=== PATIENT | female | born 1985 | race Caucasian/White ===

== ENCOUNTER 2016-07-15 16:15 | Outpatient (CLI) | payer MEDICAID | END 2016-07-15 16:16 | disposition home or self-care (01) | DX: R30.0 Dysuria (principal); N76.0 Acute vaginitis ==

== ENCOUNTER 2017-10-19 14:42 | Outpatient (CLI) | payer MEDICAID ==
--- NOTE | 2017-10-19 15:28 | XRAY Report ---
Procedure Date: 10/19/2017 Accession Number: [id number] / [id number] Procedure: XRS - Finger(s) RT CPT Code: FULL RESULT: EXAM: Finger(s) RT First digit radiography CLINICAL HISTORY: THUMB PAIN, RIGHT COMPARISON: None. TECHNIQUE: 3 views. FINDINGS: There is no fracture or dislocation. There is no foreign body in the soft tissues. IMPRESSION: No fracture or dislocation. RADIA
== END 2017-10-19 14:43 | disposition home or self-care (01) ==
LOC: DI.S 14:42
PROVIDERS: ATTEND Nurse Practitioner Family
DX: M79.644 Pain in right finger(s) (principal)
CPT/HCPCS: 73140

== ENCOUNTER 2017-12-11 15:41 | Outpatient (CLI) | payer MEDICAID | END 2017-12-11 15:42 | disposition home or self-care (01) | LOC: LAB.R 15:41 | PROVIDERS: ATTEND Nurse Practitioner | DX: R19.7 Diarrhea, unspecified (principal) | CPT/HCPCS: 81599; 82274; 83630; 87045; 87046; 87177; 87209; 87493 ==

== ENCOUNTER 2019-01-17 08:40 | Outpatient (CLI) | payer MEDICAID | END 2019-01-17 23:59 | disposition home or self-care (01) | LOC: LAB.R 08:40 | PROVIDERS: ATTEND Physician Assistant Medical | DX: N39.0 Urinary tract infection, site not specified (principal) | CPT/HCPCS: 87086; 87181 ==

== ENCOUNTER 2020-01-18 07:00 | Outpatient (CLI) | payer MEDICAID | END 2020-01-18 23:59 | disposition home or self-care (01) | LOC: LAB.R 07:00 | PROVIDERS: ATTEND Internal Medicine | DX: R06.02 Shortness of breath (principal); R05 Cough; R50.9 Fever, unspecified; Z20.828 Contact with and (suspected) exposure to other viral communicable diseases ==

== ENCOUNTER 2021-02-01 08:00 | Outpatient (CLI) | payer MEDICAID ==
--- NOTE | 2021-02-01 16:20 | XRAY Report ---
PROCEDURE: Hand 3 View RT INDICATIONS: CONTUSION OF RIGHT HAND TECHNIQUE: 3 views of the hand(s) acquired. COMPARISON: 03/03/2019. FINDINGS: Bones: No acute fractures or dislocations. There is a mild curvature of the fifth metacarpal consist ent with sequelae of an old fracture redemonstrated. No suspicious bony lesions. Soft tissues: No suspicious soft tissue calcifications. IMPRESSION: 1. No acute fracture or dislocation. Reviewed by: Hugh Dinh MD on 02/01/2021 4:19 PM PST Approved by: Hugh Dinh MD on 02/01/2021 4:19 PM PST Station ID: [id number]
== END 2021-02-01 23:59 | disposition home or self-care (01) ==
LOC: DI.S 08:00
PROVIDERS: ATTEND Physician Assistant
DX: S60.221A Contusion of right hand, initial encounter (principal)

== ENCOUNTER 2021-02-01 12:46 | Emergency (ER) | payer MEDICAID ==
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
[2021-02-01] MEDS ORDERED: IOVERSOL 320 100 ML VIAL IVP ONE (13:41)
[2021-02-01 13:43] VITALS: BP 128/66
== END 2021-02-01 13:42 | disposition home or self-care (01) ==
LOC: ED 12:46
DX: T71.193A Asphyxiation due to mechanical threat to breathing due to other causes, assault, initial encounter (principal); S60.211A Contusion of right wrist, initial encounter
CPT/HCPCS: 80053; 83690; 84702; 85025; 99282; 99284

== ENCOUNTER 2021-07-05 08:00 | Outpatient (CLI) | payer MEDICAID ==
--- NOTE | 2021-07-05 11:16 | XRAY Report ---
PROCEDURE: Ribs 2 View LT INDICATIONS: CHEST INJURY TECHNIQUE: 3 views of the left ribs were acquired. COMPARISON: None. FINDINGS: BONES: No acute, displaced fracture or dislocation. SOFT TISSUES: No focal abnormality. IMPRESSION: 1.No acute, displaced left rib fracture. Reviewed by: Erich Rainey MD on 07/05/2021 11:15 AM PDT Approved by: Erich Rainey MD on 07/05/2021 11:15 AM PDT Station ID: [id number]
--- NOTE | 2021-07-05 11:16 | XRAY Report ---
PROCEDURE: Chest 2 View X-Ray INDICATIONS: CHEST INJURY TECHNIQUE: 2 view(s) of the chest. COMPARISON: None. FINDINGS: SUPPORT DEVICES: None. LUNGS/PLEURA: No focal consolidation, pleural effusion or space-occupying pneumothorax. MEDIASTINUM: The cardiomediastinal silhouette is within normal limits. BONES/SOFT TISSUES: No acute abnormality. IMPRESSION: 1.No acute cardiopulmonary abnormality. Reviewed by: Erich Rainey MD on 07/05/2021 11:14 AM PDT Approved by: Erich Rainey MD on 07/05/2021 11:14 AM PDT Station ID: [id number]
== END 2021-07-05 23:59 | disposition home or self-care (01) ==
LOC: DI.S 08:00
PROVIDERS: ATTEND Emergency Medicine
DX: S20.212A Contusion of left front wall of thorax, initial encounter (principal)